=== PATIENT | male | born 1950 | race Caucasian/White ===

== ENCOUNTER 2016-04-10 11:09 | Inpatient (IN) | payer MEDICARE ==
[2016-04-10] MEDS ORDERED: SODIUM CHLORIDE 0.9% 10 ML FLUSH FLUSH PRN (11:29)
--- NOTE | 2016-04-10 11:34 | DIRPT ---
CLINICAL DATA: Confusion/altered mental status EXAM: CT HEAD WITHOUT CONTRAST TECHNIQUE: Contiguous axial images were obtained from the base of the skull through the vertex without intravenous contrast. COMPARISON: None. FINDINGS: There is mild diffuse atrophy. There is decreased attenuation in much of the left temporal lobe with extension to the left frontal-parietal lobe on the left. There is localized cytotoxic edema in these areas. There is no midline shift or acute intracranial hemorrhage. No subdural or epidural fluid collections. No other infarct apparent. The attenuation of the middle cerebral arteries is symmetric bilaterally. The bony calvarium appears intact. The mastoid air cells are clear. No intraorbital lesions are appreciable. IMPRESSION: Acute infarct involving much of the left temporal lobe with extension to the level of the left frontal -parietal junction. No midline shift or acute hemorrhage. No mass effect beyond cytotoxic edema in the area of the acute left-sided infarct. Critical Value/emergent results were called by telephone at the time of interpretation on 04/10/2016 at 11:31 am to FRANCISCA VALLE, who verbally acknowledged these results. Electronically Signed By: Kapil Johnson III, M.D. On: 04/10/2016 11:31
--- NOTE | 2016-04-10 11:35 | EDPRACDOC ---
<De La RosaMadhav - Last Filed: 04/10/16 12:36> - History of Present Illness Onset: UNKNOWN Exact Onset of Symptoms: Unknown HPI: PT PRESENTS TODAY WITH AMS. PT WAS FOUND BY SECURITY STAFF WONDERING THE PARKING LOT AND PT UNABLE TO ANSWER QUESTIONS. PT DOES NOT APPEAR TO BE IN DISTRESS, JUST CONFUSED. Symptoms Currently: Reports: Still Present Altered Quality: Reports: Confusion Altered Severity: Reports: Severe Blood Glucose Result: 169 <Josiane Schaeffer - Last Filed: 04/10/16 14:07> - General Information Stated Complaint: POSSIBLE STROKE Time Seen by Provider: 04/10/16 11:26 Home Medications: Home Medications Glimepiride 2 mg PO DAILY 02/27/15 Metformin HCl 500 mg PO DAILY 02/27/15 Docusate Sodium [Colace] 100 mg PO TID 03/01/15 Lisinopril [Zestril] 2.5 mg PO DAILY 04/10/16 Pravastatin Sodium 10 mg PO QHS 04/10/16 Allergies/Adverse Reactions: Allergies Allergy/AdvReac Type Severity Reaction Status Date / Time No Known Allergies Allergy Verified 03/03/15 19:36 ED Past Medical History - History Reviewed Yes Nurses notes reviewed and agree except as marked - Patient Medical History Respiratory History: Reports: Asthma (CHILDHOOD ASTHMA.. RESOLVED) GI/ History: Reports: Kidney Stones (06/2014) Systemic History: Reports: Diabetes Surgical History: Reports: Hernia Surgery (Lt groin 1971) - Family Medical History Reports: Diabetes (Mother,Brother). Denies: Hypertension, Cancer, Stroke, Cardiac Disorders - Social Medical History Smoking Status: Never smoker <Josiane Schaeffer - Last Filed: 04/10/16 14:07> EDM Review of Systems - Review of Systems ROS Negative Except as Marked: Yes All systems reviewed and were negative except as marked ROS Unobtainable: Yes Review of systems cannot be obtained due to the patient's medical condition <Josiane Schaeffer - Last Filed: 04/10/16 14:07> - Physical Exam Last recorded Vital Signs: Last Vital Signs Temp 97.9 F 04/10/16 11:40 Pulse 83 04/10/16 11:55 Resp 20 04/10/16 11:55 BP 148/89 04/10/16 11:55 Pulse Ox 97 04/10/16 11:55 Oxygen Pulse Oxygen Saturation 97 O2 Device Room Air Oxygen Flow Rate Fraction of Inspired Oxygen ( FIO2) <Madhav De La Rosa - Last Filed: 04/10/16 12:36> - Physical Exam Constitutional: No apparent distress, Alert Oriented to: Not Oriented Last recorded Vital Signs: Oxygen Pulse Oxygen Saturation O2 Device Oxygen Flow Rate Fraction of Inspired Oxygen ( FIO2) - HEENT Head: Normal Eye Exam: Normal Neck: Normal, Denies Pain, Midline - Respiratory/Cardiovascular Respiratory: Normal - CTA Cardiovascular: Normal - GI Palpation: Normal Tenderness: Non tender - Musculoskeletal Back: Normal Extremities: Normal - Integumentary Skin: Normal Lymphatics: Normal - Neurologic Motor Function: Unable to Test Cerebellar: Unable to Test Mood Description: Calm <Josiane Schaeffer - Last Filed: 04/10/16 14:07> - Results 04/10/16 11:34 04/10/16 11:34 WBC 12.5 xk/uL (3.8-10.8) H 04/10/16 11:34 RBC 5.33 xM/uL (4.70-6.10) 04/10/16 11:34 Hgb 15.9 g/dL (14.0-18.0) 04/10/16 11:34 Hct 47.8 % (42-52) 04/10/16 11:34 MCV 90 fL (80-94) 04/10/16 11:34 MCH 29.9 pg (27-32) 04/10/16 11:34 MCHC 33.3 g/dl (33-36) 04/10/16 11:34 RDW 14.4 % (11.5-14.5) 04/10/16 11:34 Plt Count 128 xk/uL (130-400) L 04/10/16 11:34 MPV 9.6 fL (7.4-10.4) 04/10/16 11:34 Neut % (Auto) 85.1 % (45-76) H 04/10/16 11:34 Lymph % (Auto) 5.0 % (17-44) L 04/10/16 11:34 Stanley % (Auto) 9.6 % (3-10) 04/10/16 11:34 Eos % (Auto) 0.0 % (0-5) 04/10/16 11:34 Baso % (Auto) 0.3 % (0-2) 04/10/16 11:34 Absolute Neuts (auto) 10.63 xk/uL (1.7-8.2) H 04/10/16 11:34 Absolute Lymphs (auto) 0.63 xk/uL (0.65-4.75) L 04/10/16 11:34 PT 12.1 SEC (9.2-11.2) H 04/10/16 11:34 INR 1.2 04/10/16 11:34 APTT 24.1 SEC (22-35) 04/10/16 11:34 Sodium 143 mEq/L (137-146) 04/10/16 11:34 Potassium 3.8 mEq/L (3.5-5.1) 04/10/16 11:34 Chloride 101 mEq/L (98-107) 04/10/16 11:34 Carbon Dioxide 27 mMOL/L (22-33) 04/10/16 11:34 Anion Gap 19 mEq/L (8-16) H 04/10/16 11:34 BUN 25 MG/DL (9-20) H 04/10/16 11:34 Creatinine 0.80 MG/DL (0.66-1.25) 04/10/16 11:34 Estimated GFR (MDRD) > 60 mL/min (>=60) 04/10/16 11:34 Glucose 176 MG/DL (70-99) H 04/10/16 11:34 POC Capillary Glucose 169 MG/DL (70-99) H 04/10/16 11:27 Calculated Osmolality 283 MOs/Kg (270-290) 04/10/16 11:34 Calcium 9.6 MG/DL (8.4-10.2) 04/10/16 11:34 Total Bilirubin 0.8 MG/DL (0.2-1.3) 04/10/16 11:34 AST 30 IU/L (17-59) 04/10/16 11:34 ALT 34 IU/L (21-72) 04/10/16 11:34 Alkaline Phosphatase 70 IU/L (50-160) 04/10/16 11:34 Troponin I < 0.01 ng/mL (<.04) 04/10/16 11:34 Total Protein 8.1 G/DL (6.3-8.2) 04/10/16 11:34 Albumin 5.1 G/DL (3.5-5.0) H 04/10/16 11:34 Lab Results 04/10/16 04/10/16 04/10/16 11:34 11:34 11:34 WBC 12.5 H RBC 5.33 Hgb 15.9 Hct 47.8 MCV 90 MCH 29.9 MCHC 33.3 RDW 14.4 Plt Count 128 L MPV 9.6 Neut % (Auto) 85.1 H Lymph % (Auto) 5.0 L Stanley % (Auto) 9.6 Eos % (Auto) 0.0 Baso % (Auto) 0.3 Absolute Neuts (auto) 10.63 H Absolute Lymphs (auto) 0.63 L PT 12.1 H INR 1.2 APTT 24.1 Sodium 143 Potassium 3.8 Chloride 101 Carbon Dioxide 27 Anion Gap 19 H BUN 25 H Creatinine 0.80 Estimated GFR (MDRD) > 60 Glucose 176 H POC Capillary Glucose Calculated Osmolality 283 Calcium 9.6 Total Bilirubin 0.8 AST 30 ALT 34 Alkaline Phosphatase 70 Troponin I < 0.01 Total Protein 8.1 Albumin 5.1 H 04/10/16 11:27 WBC RBC Hgb Hct MCV MCH MCHC RDW Plt Count MPV Neut % (Auto) Lymph % (Auto) Stanley % (Auto) Eos % (Auto) Baso % (Auto) Absolute Neuts (auto) Absolute Lymphs (auto) PT INR APTT Sodium Potassium Chloride Carbon Dioxide Anion Gap BUN Creatinine Estimated GFR (MDRD) Glucose POC Capillary Glucose 169 H Calculated Osmolality Calcium Total Bilirubin AST ALT Alkaline Phosphatase Troponin I Total Protein Albumin <Madhav De La Rosa - Last Filed: 04/10/16 12:36> - Results 04/10/16 11:34 04/10/16 11:34 POC Capillary Glucose 169 MG/DL (70-99) H 04/10/16 11:27 Lab Results 04/10/16 11:27 POC Capillary Glucose 169 H - EKG EKG #1 EKG Time: 11:40 -: Yes EKG interpreted by me Rate: bpm: 81 [place]: Normal Rhythm: NSR Block: RBBB (INCOMPLETE) Hypertrophy: None ST: Normal <Josiane Schaeffer - Last Filed: 04/10/16 14:07> - Departure Yes I personally saw and evaluated the patient. Disposition: Admit IP To This Hospital - Physician Consulted Hospitalist Time Called: 12:36 Provider Called: Teri Philippe Time Bean Dumper Returned Call: 12:36 <Madhav De La Rosa - Last Filed: 04/10/16 12:36> - Departure Disposition: Admit IP To This Hospital Decision to Admit Time: 11:36 Decision to admit date: 04/10/16 Decision to admit: from ED <Josiane Schaeffer - Last Filed: 04/10/16 14:07> - Departure Condition: Fair Final Diagnosis: CVA (cerebral vascular accident) Qualifiers: CVA mechanism: unspecified Qualified Code(s): I63.9 - Cerebral infarction, unspecified
[2016-04-10] MEDS ORDERED: ASPIRIN 300 MG SUPP PR ONE (11:44)
[2016-04-10 11:49] LABS: AUTOMATED BASOPHIL 0.3 % (0-2); AUTOMATED MONOCYTE 9.6 % (3-10); AUTOMATED NEUTROPHIL 85.1 % (45-76); MPV 9.6 fL (7.4-10.4)
[2016-04-10 11:58] LABS: BLOOD UREA NITROGEN 25 MG/DL (9-20); CALCIUM 9.6 MG/DL (8.4-10.2); CALCULATED OSMOLALITY 283 MOs/Kg (270-290); CHLORIDE 101 mEq/L (98-107); GLUCOSE 176 MG/DL (70-99); SODIUM LEVEL 143 mEq/L (137-146); TOTAL PROTEIN 8.1 G/DL (6.3-8.2)
[2016-04-10] MEDS ORDERED: Pharmacy Review for Metformin - IV Contrast Given SCH (12:00)
[2016-04-10 12:04] LABS: PARTIAL THROMB. TIME 24.1 SEC (22-35); PT-INR 1.2
--- NOTE | 2016-04-10 12:35 | DIRPT ---
CLINICAL DATA: Chest pain. Altered mental status EXAM: PORTABLE CHEST 1 VIEW COMPARISON: None. FINDINGS: There is low lung volumes with streaky basilar opacity and interstitial crowding. There is no edema, consolidation, effusion, or pneumothorax. Normal heart size. Negative aortic and hilar contours for technique. IMPRESSION: Low volumes with mild atelectasis. Electronically Signed By: Franklin Ordonez M.D. On: 04/10/2016 12:32
[2016-04-10] MEDS ORDERED: BENZONATATE 100 MG PERLES PO PRN (13:14)
[2016-04-10] MEDS ORDERED: Docusate Sodium 100 MG CAP PO PRN (13:14)
[2016-04-10] MEDS ORDERED: GUAIFENESIN 200 MG/10 ML UDC PO PRN (13:14)
[2016-04-10] MEDS ORDERED: ONDANSETRON HCL 4 MG/2 ML VIAL IV PRN (13:14)
[2016-04-10] MEDS ORDERED: ACETAMINOPHEN 325 MG/TAB TABLET PO PRN (13:14)
[2016-04-10] MEDS ORDERED: MAGNESIUM HYDROXIDE 30 ML BOTTLE PO PRN (13:14)
[2016-04-10] MEDS ORDERED: ACETAMINOPHEN 650 MG SUPP PR PRN (13:14)
[2016-04-10] MEDS ORDERED: ZOLPIDEM TARTRATE 5 MG TAB PO PRN (13:14)
[2016-04-10] MEDS ORDERED: GLUCOSE (ORAL GEL) 15 GM TUBE PO PRN (13:17)
[2016-04-10] MEDS ORDERED: DEXTROSE 25 GM/50 ML PFS IV PRN (13:17)
[2016-04-10] MEDS ORDERED: GLUCAGON 1 MG VIAL SQ PRN (13:17)
--- NOTE | 2016-04-10 13:19 | HISTPHYS ---
- Chief Complaint stroke, aphasia - History of Present Illness Mr. Lockhart is an unfortunate 65-year-old white male who lives alone and presented to the emergency room with severe expressive aphasia and an acute left parietotemporal stroke. His sister states she has not seen him for the last several days but this is not unusual as he is very independent. He apparently drove himself to the hospital and was found wandering outside confused and disoriented. He was brought back and evaluated and noted to have severe expressive aphasia. A CT scan of his head shows a large left temporoparietal stroke. He is somewhat restless and agitated at present but is moving all 4 extremities. He has abrasions on his right side and appears that he may have been injured or on the ground for prolonged period of time. He is unable to provide any history. - Medical History Cardiac History: Reports: No Significant History Respiratory History: Reports: Asthma (CHILDHOOD ASTHMA.. RESOLVED) GI/ History: Reports: Kidney Stones (06/2014) Musculoskeletal History: Reports: No Significant History Systemic History: Reports: Diabetes Neurological History: Reports: No Significant History Psychological History: Reports: No Significant History - Surgical History Reports: Hernia Surgery (Lt groin 1971) - Medictions/Allergies Allergies No Known Allergies Allergy (Verified 03/03/15 19:36) Current Medication List: Reviewed Home Medications Glimepiride 2 mg PO DAILY 02/27/15 Metformin HCl 500 mg PO BID 02/27/15 Docusate Sodium [Colace] 100 mg PO TID 03/01/15 Levofloxacin [Levaquin] 500 mg PO DAILY 03/01/15 Phenazopyridine [Pyridium] 200 mg PO TID #6 tab 03/03/15 - Family History Reports: Diabetes (Mother,Brother). Denies: Hypertension, Cancer, Stroke, Cardiac Disorders - Social History Travel Outside of [place] in the Last 3 Months?: Unable to Determine Lives: Alone Smoking Status: Never smoker Social History: Denies: Alcohol Use - Review of Systems Yes Review of systems cannot be obtained due to the patient's medical condition (Severe expressive aphasia and nonverbal status) - Physical Exam Constitutional: Alert, Distress, Restless, Well nourished. negative: Well appearing (Restless and agitated) Oriented to: Not Oriented Exam: Last Vital Signs Temp 97.9 F 04/10/16 11:40 Pulse 81 04/10/16 13:10 Resp 18 04/10/16 13:10 BP 158/98 04/10/16 13:10 Pulse Ox 97 04/10/16 13:10 Intake & Output 04/09/16 04/10/16 04/10/16 23:59 07:59 15:59 Patient's weight 113.171 kg - HEENT Head: Normal Eye: Normal Oropharynx: Normal - Respiratory/Cardiovascular Respiratory: Normal - CTA Cardiovascular: Normal - GI Auscultation: Normal Palpation: Normal Tenderness: Other (Possible left inguinal hernia very tender in his left groin but very restless keeps moving with attempts to examine) - Musculoskeletal Back: Normal Extremities: Normal - Integumentary Skin: Normal, Warm, Dry Lymphatics: Normal - Neurologic Memory Impaired: Unable to Test Motor Function: Other (Moving all 4 extremities but poor job following commands. ) Cranial Nerve: Other (Expressive aphasia and nonverbal currently) Cerebellar: Unable to Test Mood Description: Anxious, Agitated, Other (Very restless) Thought: negative: Coherent Perception: negative: Normal - Focused CV Perfusion Exam Vital Signs: Last Vital Signs Temp 97.9 F 04/10/16 11:40 Pulse 81 04/10/16 13:10 Resp 18 04/10/16 13:10 BP 158/98 04/10/16 13:10 Pulse Ox 97 04/10/16 13:10 - Lab Results Laboratory Results - last 24 hr 04/10/16 04/10/16 04/10/16 11:27 11:34 11:34 WBC 12.5 H RBC 5.33 Hgb 15.9 Hct 47.8 MCV 90 MCH 29.9 MCHC 33.3 RDW 14.4 Plt Count 128 L MPV 9.6 Neut % (Auto) 85.1 H Lymph % (Auto) 5.0 L Becker % (Auto) 9.6 Eos % (Auto) 0.0 Baso % (Auto) 0.3 Absolute Neuts (auto) 10.63 H Absolute Lymphs (auto) 0.63 L PT INR APTT Sodium 143 Potassium 3.8 Chloride 101 Carbon Dioxide 27 Anion Gap 19 H BUN 25 H Creatinine 0.80 Estimated GFR (MDRD) > 60 Glucose 176 H POC Capillary Glucose 169 H Calculated Osmolality 283 Calcium 9.6 Total Bilirubin 0.8 AST 30 ALT 34 Alkaline Phosphatase 70 Troponin I < 0.01 Total Protein 8.1 Albumin 5.1 H 04/10/16 11:34 WBC RBC Hgb Hct MCV MCH MCHC RDW Plt Count MPV Neut % (Auto) Lymph % (Auto) Becker % (Auto) Eos % (Auto) Baso % (Auto) Absolute Neuts (auto) Absolute Lymphs (auto) PT 12.1 H INR 1.2 APTT 24.1 Sodium Potassium Chloride Carbon Dioxide Anion Gap BUN Creatinine Estimated GFR (MDRD) Glucose POC Capillary Glucose Calculated Osmolality Calcium Total Bilirubin AST ALT Alkaline Phosphatase Troponin I Total Protein Albumin - Assessment (1) CVA (cerebral vascular accident) I63.9 - CEREBRAL INFARCTION, UNSPECIFIED Acute Present on Admission: Yes Qualifiers: CVA mechanism: thrombosis Precerebral and cerebral artery: middle cerebral artery Laterality of affected vessel: left Qualified Code(s): I63.312 - Cerebral infarction due to thrombosis of left middle cerebral artery Large left stroke in temporoparietal region. Has severe expressive aphasia but is moving his right side. Start aspirin and Lipitor. Carotid Dopplers and 2D echo. Speech therapy, physical therapy, and occupational therapy. Depending on progress he may need short-term rehab. This a large stroke and prognosis is guarded at this time. I did discuss this at length with patient's closest relative his sister. (2) Hypertension I10 - ESSENTIAL (PRIMARY) HYPERTENSION Acute Present on Admission: Yes Qualifiers: Hypertension type: essential hypertension Qualified Code(s): I10 - Essential (primary) hypertension Continue medications. Will allow permissive hypertension in the setting of acute stroke. Monitor closely (3) Diabetes mellitus E11.9 - TYPE 2 DIABETES MELLITUS WITHOUT COMPLICATIONS Acute Present on Admission: Yes Qualifiers: Diabetes mellitus type: type 2 Diabetes mellitus complication status: without complication Diabetes mellitus complication detail: D Diabetic retinopathy severity: D Proliferative retinopathy type: P Diabetes mellitus macular edema: D Diabetes mellitus nursing home insulin use: without nursing home use Laterality: L Chronic kidney disease stage: C Qualified Code(s): E11.9 - Type 2 diabetes mellitus without complications NPO due to acute stroke. Accu-Cheks and sliding scale insulin (4) Abdominal pain R10.9 - UNSPECIFIED ABDOMINAL PAIN Acute Present on Admission: Yes Qualifiers: Abdominal location: lower abdomen, unspecified Qualified Code(s): R10.30 - Lower abdominal pain, unspecified Appears very restless and agitated and grabbing at his left inguinal area. Have attempted repeatedly to examine and suspect has inguinal hernia but repeatedly pulls away. Does appear to be significant distress related to this. Will do CT of abdomen pelvis to rule out incarcerated hernia Case Care Discussed with: Patient, Family (Sister), Resource Management Total Time: 1 hour Critical Care: Yes
[2016-04-10 14:15] LABS: RBC/URINE TNTC (0-2)
[2016-04-10 14:36] LABS: LEUKOCYTES/URINE NEG (NEGATIVE); NITRITE/URINE NEG (NEGATIVE); URINE OCCULT BLOOD 2+ (NEG/TRACE)
[2016-04-10 14:39] LABS: AMORPHOUS 1+
[2016-04-10] MEDS: Aspirin (Orange Enteric Coated) 325 mg tab PO SCH (17:18)
[2016-04-10] MEDS: ATORVASTATIN 80 MG TAB PO SCH (17:18)
[2016-04-10] MEDS: REGULAR INSULIN 100 UNITS/ML - 3 ML VIAL SQ SCH ×2 (17:42→22:04)
[2016-04-10] MEDS: ENOXAPARIN 60 MG/0.6 ML PFS SQ SCH (17:48)
--- NOTE | 2016-04-10 21:18 | DIRPT ---
CLINICAL DATA: Confusion altered mental status EXAM: BILATERAL CAROTID DUPLEX ULTRASOUND TECHNIQUE: Michel scale imaging, color Doppler and duplex ultrasound were performed of bilateral carotid and vertebral arteries in the neck. COMPARISON: None. FINDINGS: Criteria: Quantification of carotid stenosis is based on velocity parameters that correlate the residual internal carotid diameter with NASCET-based stenosis levels, using the diameter of the distal internal carotid lumen as the denominator for stenosis measurement. The following velocity measurements were obtained: RIGHT ICA: 65/29 cm/sec CCA: 55/15 cm/sec SYSTOLIC ICA/CCA RATIO: 1.2 DIASTOLIC ICA/CCA RATIO: 2.0 ECA: 97 cm/sec LEFT ICA: 55/19 cm/sec CCA: 80/16 cm/sec SYSTOLIC ICA/CCA RATIO: 0.7 DIASTOLIC ICA/CCA RATIO: 1.2 ECA: 108 cm/sec RIGHT CAROTID ARTERY: Mild plaque in the bulb RIGHT VERTEBRAL ARTERY: Antegrade flow 0 LEFT CAROTID ARTERY: Mild intimal thickening in the bulb and common carotid artery LEFT VERTEBRAL ARTERY: Antegrade flow IMPRESSION: No evidence of hemodynamically significant stenosis Electronically Signed By: Tim Serrano M.D. On: 04/10/2016 21:15
--- NOTE | 2016-04-10 22:56 | DIRPT ---
CLINICAL DATA: 65-year-old male with new right upper extremity weakness, and right facial droop. EXAM: CT HEAD WITHOUT CONTRAST TECHNIQUE: Contiguous axial images were obtained from the base of the skull through the vertex without intravenous contrast. COMPARISON: CT dated 04/10/2016 FINDINGS: No acute intracranial hemorrhage. An area of hypodensity is again noted in the left temporal lobe extending into the left parietal lobe similar to prior study. There is loss of allen-white matter discrimination and effacement of the sulci. No significant mass effect or midline shift. The ventricles and sulci are appropriate in size for the patient's age. Mild periventricular and deep white matter hypodensity compatible with chronic microvascular ischemic changes. There is mild mucoperiosteal thickening of paranasal sinuses. The mastoid air cells are well aerated. The calvarium is intact. IMPRESSION: Grossly stable left MCA territory infarct. No acute hemorrhage. These results were called by telephone at the time of interpretation on 04/10/2016 at 10:50 pm to nurse Wolfe, who verbally acknowledged these results. Electronically Signed By: Jeffery Shields M.D. On: 04/10/2016 22:53
[2016-04-11] MEDS: REGULAR INSULIN 100 UNITS/ML - 3 ML VIAL SQ SCH ×4 (05:36→20:21)
[2016-04-11] MEDS: Aspirin (Orange Enteric Coated) 325 mg tab PO SCH (10:34)
--- NOTE | 2016-04-11 14:29 | GENMEDPROG ---
Chief Complaint: Still with severe expressive aphasia. Much calmer currently. Intermittently follows commands. Notes Reviewed: Yes Events from last night noted and discussed with Clinical Staff Current Medication List: Reviewed Currently: Denies: Cough, Wheezing, SIERRA, SOB, Nausea and Vomiting, Abdominal Pain, Chest Pain - Physical Examination Vital Signs and I&O: Last Vital Signs Temp 98.7 F 04/11/16 11:26 Pulse 84 04/11/16 14:00 Resp 20 04/11/16 11:26 BP 117/73 04/11/16 11:26 Pulse Ox 93 04/11/16 11:26 Oxygen Pulse Oxygen Saturation 93 O2 Device Room Air Oxygen Flow Rate 2 Fraction of Inspired Oxygen ( FIO2) Intake & Output 04/08/16 04/09/16 04/10/16 04/11/16 23:59 23:59 23:59 23:59 Intake Total 125 Output Total 1100 225 Balance -975 -225 Patient's weight 112.899 kg 99.478 kg General: Alert, Cooperative (Intermittently), No acute distress. negative: Oriented x3, Well appearing HEENT: Normal, PERRLA, EOMI, Anicteric Sclera Neck: Non-tender, Full range of motion, Normal Trachea alignment, Normal inspection. negative: JVD Lymphatics: Normal. negative: Adenopathy Respiratory: Normal - CTA Cardiovascular: Regular rate and rhythm, No Gallops,Rubs/Murmurs GI: Normal bowel sounds, Soft, Non tender, No hepatospenomegaly Extremities/Musculoskeletal: Normal pulses. negative: Tenderness, Swelling, Edema Skin: Warm,Dry and Intact, No rashes, No breakdown, No significant lesion Neurological: negative: Strength at 5/5 X4 ext (Right upper extremity 0/5. Right lower extremity 4/5) Psych/Mental Status: Cooperative (Intermittently), Restless (Though significantly improved from yesterday) Lab/DI/Studies Reviewed: Laboratory Results - last 24 hr 04/10/16 04/10/16 04/10/16 11:34 13:45 14:55 POC Capillary Glucose Troponin I < 0.01 Triglycerides Cholesterol LDL Cholesterol, Calc VLDL Cholesterol, Calc HDL Cholesterol Cholesterol/HDL Ratio TSH 2.40 Urine Color Yellow Urine Clarity Sl hzy Urine pH 5.0 Ur Specific [place] 1.025 Urine Protein Trace Urine Glucose (UA) Neg Urine Ketones 1+ H Urine Occult Blood 2+ H Urine Nitrite Neg Urine Bilirubin Neg Urine Urobilinogen 0.2 Ur Leukocyte Esterase Neg Urine RBC Tntc H Urine WBC 2-5 H Uric Acid Crystals 1+ Amorphous Sediment 1+ Urine Bacteria Few Urine Mucus Occ 04/10/16 04/10/16 04/10/16 17:36 17:42 21:44 POC Capillary Glucose 129 H 125 H Troponin I < 0.01 Triglycerides Cholesterol LDL Cholesterol, Calc VLDL Cholesterol, Calc HDL Cholesterol Cholesterol/HDL Ratio TSH Urine Color Urine Clarity Urine pH Ur Specific [place] Urine Protein Urine Glucose (UA) Urine Ketones Urine Occult Blood Urine Nitrite Urine Bilirubin Urine Urobilinogen Ur Leukocyte Esterase Urine RBC Urine WBC Uric Acid Crystals Amorphous Sediment Urine Bacteria Urine Mucus 04/11/16 04/11/16 04/11/16 03:10 04:46 11:18 POC Capillary Glucose 116 H 131 H Troponin I Triglycerides 130 Cholesterol 138 LDL Cholesterol, Calc 61.0 VLDL Cholesterol, Calc 26.0 HDL Cholesterol 51.0 Cholesterol/HDL Ratio 2.7 TSH Urine Color Urine Clarity Urine pH Ur Specific [place] Urine Protein Urine Glucose (UA) Urine Ketones Urine Occult Blood Urine Nitrite Urine Bilirubin Urine Urobilinogen Ur Leukocyte Esterase Urine RBC Urine WBC Uric Acid Crystals Amorphous Sediment Urine Bacteria Urine Mucus - Assessment (1) CVA (cerebral vascular accident) Acute I63.9 - CEREBRAL INFARCTION, UNSPECIFIED Qualifiers: CVA mechanism: thrombosis Precerebral and cerebral artery: middle cerebral artery Laterality of affected vessel: left Qualified Code(s): I63.312 - Cerebral infarction due to thrombosis of left middle cerebral artery Comment/Plan: Large left stroke in temporoparietal region. Severe expressive aphasia and appears paralyzed in his right upper extremity. He is moving his right lower extremity some. He has significant dysphagia so will be made NPO and an NG tube placed. May require PEG. Carotid Dopplers and 2D echo are pending. Continue speech therapy physical therapy and occupational therapy. Discussed with brother at length. He will need [facility] facility placement at discharge. (2) Hypertension Acute I10 - ESSENTIAL (PRIMARY) HYPERTENSION Qualifiers: Hypertension type: essential hypertension Qualified Code(s): I10 - Essential (primary) hypertension Comment/Plan: Titrate medications as needed. 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 Accu-Cheks and sliding scale insulin (4) Abdominal pain Acute R10.9 - UNSPECIFIED ABDOMINAL PAIN Qualifiers: Abdominal location: lower abdomen, unspecified Qualified Code(s): R10.30 - Lower abdominal pain, unspecified Comment/Plan: Appears very restless and agitated and grabbing at his left inguinal area. Have attempted repeatedly to examine and suspect has inguinal hernia but repeatedly pulls away. Does appear to be significant distress related to this. 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
[2016-04-11] MEDS ORDERED: DIATRIZOATE MEGLMINE/SODIUM 30 ML BOTTLE PO ONE (14:30)
[2016-04-11] MEDS: ATORVASTATIN 80 MG TAB PO SCH (15:51)
[2016-04-11] MEDS: ENOXAPARIN 60 MG/0.6 ML PFS SQ SCH (17:47)
--- NOTE | 2016-04-11 18:51 | DIRPT ---
CLINICAL DATA: Possible incarcerated hernia, left groin pain EXAM: CT ABDOMEN AND PELVIS WITHOUT CONTRAST TECHNIQUE: Multidetector CT imaging of the abdomen and pelvis was performed following the standard protocol without IV contrast. COMPARISON: CT scan 06/13/2014 FINDINGS: Lung bases are unremarkable. There is NG tube in place with tip in mid stomach. Hypodense lesions within liver probable cysts are stable in size in appearance from prior exam. No calcified gallstones are noted within gallbladder. Sagittal images of the spine shows diffuse osteopenia. Stable partial bony fusion and mild anterolisthesis L5-S1 level. Atherosclerotic calcifications of abdominal aorta and iliac arteries. No aortic aneurysm. Unenhanced liver shows no biliary ductal dilatation. Unenhanced pancreas, spleen and adrenal glands are unremarkable. Unenhanced kidneys are symmetrical in size. No nephrolithiasis. There is a cyst in upper pole lateral aspect of the left kidney measures 3.4 cm. On the prior exam this measures 2.9 cm. No calcified ureteral calculi. Oral contrast material was given to the patient. There is no small bowel obstruction. The terminal ileum is unremarkable. No pericecal inflammation. The appendix is not identified. Some colonic gas and stool noted in descending colon. No evidence of colitis or diverticulitis. Moderate gas and stool noted within rectum. There is a decompressed urinary bladder. There is a low lying Segura catheter with a balloon in the region of prostatic urethra. There is a right inguinal hernia containing fat measures about 1.1 cm. No evidence of acute complication. Again noted a left inguinal scrotal canal hernia containing fat measures 3.7 by 2.2 cm stable in size from prior exam. There is mild stranding of the fat within left inguinal cell hernia. Mild inflammatory changes or fat edema cannot be excluded. No evidence of confluent fluid collection. Minimal thickening of the wall of the hernial sac. Tiny amount of air within urinary bladder is probable post instrumentation. IMPRESSION: 1. Again noted a left inguinal scrotal canal hernia containing fat. Measures 3.7 x 2.2 cm stable from prior exam. There is mild stranding of the fat within hernia and mild thickening of the wall of hernia sac. Findings are suspicious for mild inflammatory changes. There is no evidence of confluent fluid collection or abscess. 2. Stable scattered low-density lesion within liver probable benign in nature. 3. There is a NG tube in place with tip in mid stomach. 4. No nephrolithiasis. No hydronephrosis or hydroureter. A cyst in upper pole of the left kidney measures 3.4 cm with slight progression in size from prior exam. 5. No small bowel obstruction. No pericecal inflammation. The appendix is not identified. 6. Stable degenerative changes lumbar spine at L5-S1 level. 7. Small amount of air is noted within decompressed urinary bladder. Small amount of air within bladder is probable post instrumentation. There is a low lying Segura catheter with the baloon in the region of prostatic urethra. Electronically Signed By: Domenico Bee M.D. On: 04/11/2016 18:48
[2016-04-12 04:17] LABS: AUTOMATED BASOPHIL 0.3 % (0-2); AUTOMATED EOSINOPHIL 0.1 % (0-5); AUTOMATED LYMPH 9.8 % (17-44); AUTOMATED MONOCYTE 12.4 % (3-10); AUTOMATED NEUTROPHIL 77.4 % (45-76); MPV 9.9 fL (7.4-10.4)
[2016-04-12 04:25] LABS: BLOOD UREA NITROGEN 21 MG/DL (9-20); CALCIUM 9.4 MG/DL (8.4-10.2); CALCULATED OSMOLALITY 282 MOs/Kg (270-290); CHLORIDE 102 mEq/L (98-107); GLUCOSE 130 MG/DL (70-99); SODIUM LEVEL 144 mEq/L (137-146)
[2016-04-12] MEDS: REGULAR INSULIN 100 UNITS/ML - 3 ML VIAL SQ SCH ×4 (04:59→21:50)
[2016-04-12] MEDS: Aspirin (Orange Enteric Coated) 325 mg tab PO SCH (07:41)
[2016-04-12] MEDS: ATORVASTATIN 80 MG TAB PO SCH (07:41)
--- NOTE | 2016-04-12 10:19 | GENMEDPROG ---
Currently: Denies: Cough, Wheezing, SIERRA, SOB, Nausea and Vomiting, Abdominal Pain, Chest Pain - Physical Examination Vital Signs and I&O: Last Vital Signs Temp 98.3 F 04/12/16 08:13 Pulse 70 04/12/16 08:13 Resp 18 04/12/16 08:13 BP 130/76 04/12/16 08:13 Pulse Ox 92 04/12/16 08:13 Oxygen Pulse Oxygen Saturation 92 O2 Device Nasal Cannula Oxygen Flow Rate 1 Fraction of Inspired Oxygen ( FIO2) Intake & Output 04/09/16 04/10/16 04/11/16 04/12/16 23:59 23:59 23:59 23:59 Intake Total 125 Output Total 1100 1325 400 Balance -975 -1325 -400 Patient's weight 112.899 kg 99.478 kg 97.25 kg General: Alert, Cooperative (Intermittently), No acute distress. negative: Oriented x3, Well appearing HEENT: Normal, PERRLA, EOMI, Anicteric Sclera Neck: Non-tender, Full range of motion, Normal Trachea alignment, Normal inspection. negative: JVD Lymphatics: Normal. negative: Adenopathy Respiratory: Normal - CTA Cardiovascular: Regular rate and rhythm, No Gallops,Rubs/Murmurs GI: Normal bowel sounds, Soft, Non tender, No hepatospenomegaly Extremities/Musculoskeletal: Normal pulses. negative: Tenderness, Swelling, Edema Skin: Warm,Dry and Intact, No rashes, No breakdown, No significant lesion Neurological: Normal speech (aphasic), Normal tone (on left), Lethargy. negative: Strength at 5/5 X4 ext (Right upper extremity 0/5. Right lower extremity 1/5), Reflexes 2+ (Babinski present on Right) Psych/Mental Status: Cooperative (Intermittently), Restless (Though significantly improved from yesterday) Lab/DI/Studies Reviewed: Laboratory Tests 04/12/16 04/12/16 04:00 04:19 WBC 12.5 H Hgb 15.8 Hct 47.8 Plt Count 123 L Neut % (Auto) 77.4 H Lymph % (Auto) 9.8 L Brown % (Auto) 12.4 H Sodium 144 Potassium 3.7 Chloride 102 Carbon Dioxide 27 Anion Gap 19 H BUN 21 H Creatinine 0.80 Estimated GFR (MDRD) > 60 Glucose 130 H Calculated Osmolality 282 Calcium 9.4 - Assessment (1) CVA (cerebral vascular accident) Acute I63.9 - CEREBRAL INFARCTION, UNSPECIFIED Qualifiers: CVA mechanism: thrombosis Precerebral and cerebral artery: middle cerebral artery Laterality of affected vessel: left Qualified Code(s): I63.312 - Cerebral infarction due to thrombosis of left middle cerebral artery Comment/Plan: Large left stroke in temporoparietal region. Severe expressive aphasia and appears paralyzed in his right upper & lower extremities. He is not moving anything on the right voluntarily, but does move the left side. He has significant dysphagia so will be made NPO and an NG tube placed. May require PEG. Carotid Dopplers and 2D echo are pending. Continue speech therapy physical therapy and occupational therapy. He will need intermediate facility placement at discharge. (2) Flaccid paralysis affecting one side of the body Acute G81.00 - FLACCID HEMIPLEGIA AFFECTING UNSPECIFIED SIDE Comment/Plan: Appears to have extended his stroke, as he now has complete paralysis on the entire right side. Also has difficulty following commands, so probably has receptive and expressive aphasia. (3) Diabetes mellitus Acute E11.9 - TYPE 2 DIABETES MELLITUS WITHOUT COMPLICATIONS Qualifiers: Diabetes mellitus type: type 2 Diabetes mellitus complication status: with neurologic complications Diabetes mellitus complication detail: with other neurological complication Diabetic retinopathy severity: D Proliferative retinopathy type: P Diabetes mellitus macular edema: D Diabetes mellitus skilled nursing insulin use: without skilled nursing use Laterality: L Chronic kidney disease stage: C Qualified Code(s): E11.49 - Type 2 diabetes mellitus with other diabetic neurological complication Comment/Plan: NPO due to acute stroke. Accu-Cheks and sliding scale insulin (4) Hypertension Acute I10 - ESSENTIAL (PRIMARY) HYPERTENSION Qualifiers: Hypertension type: essential hypertension Qualified Code(s): I10 - Essential (primary) hypertension Comment/Plan: Titrate medications as needed. Case Care Discussed with: Nursing Staff, Resource Management Education/Counseling Given Regarding: Diagnosis, Treatment, Prognosis Total Time: 35 min
[2016-04-12] MEDS: NS/KCl 20 mEq 1,000 ML IV SCH (15:32)
[2016-04-12] MEDS: Levofloxacin 750 mg/150 ml D5W 750 MG/150 ML RTU IV SCH (23:10)
[2016-04-13] MEDS: NS/KCl 20 mEq 1,000 ML IV SCH ×4 (01:45→21:45)
[2016-04-13] MEDS: REGULAR INSULIN 100 UNITS/ML - 3 ML VIAL SQ SCH ×4 (04:56→19:59)
[2016-04-13] MEDS ORDERED: ASPIRIN 325 MG TAB PO SCH (08:00)
--- NOTE | 2016-04-13 09:22 | DIRPT ---
CLINICAL DATA: Follow-up of pneumonia EXAM: CHEST 2 VIEW COMPARISON: Portable chest x-ray of April 10, 2016 and uppermost images from a CT scan of the abdomen and pelvis dated April 11, 2016 FINDINGS: There is persistent elevation of the right hemidiaphragm. The lungs are adequately inflated. There is no focal infiltrate. There is a tiny amount of blunting of the posterior costophrenic angle on the left which is seen on the CT scan to be related to prominent subpleural fat. The cardiac silhouette is normal in size. The pulmonary vascularity is not engorged. The esophagogastric tube tip projects below the inferior margin of the image. IMPRESSION: Stable elevation of the right hemidiaphragm. No acute cardiopulmonary abnormality. Electronically Signed By: Chris Kebede M.D. On: 04/13/2016 09:19
--- NOTE | 2016-04-13 10:59 | GENMEDPROG ---
Chief Complaint: CVA w/ R sided paralysis, expressive and receptive aphasia (global), dysphagia , DM-2, HTN/HCVD Currently: Denies: Cough, Wheezing, SIERRA, SOB, Nausea and Vomiting, Abdominal Pain, Chest Pain - Physical Examination Vital Signs and I&O: Last Vital Signs Temp 98.2 F 04/13/16 08:00 Pulse 72 04/13/16 09:55 Resp 20 04/13/16 08:00 BP 117/69 04/13/16 08:00 Pulse Ox 94 04/13/16 09:37 Oxygen Pulse Oxygen Saturation 94 O2 Device Room Air Oxygen Flow Rate 2 Fraction of Inspired Oxygen ( FIO2) Intake & Output 04/10/16 04/11/16 04/12/16 04/13/16 23:59 23:59 23:59 23:59 Intake Total 878 572 5739 Output Total 1100 1325 1100 200 Balance -975 -1325 -864 1072 Patient's weight 112.899 kg 99.478 kg 97.25 kg 97.522 kg General: Alert, Cooperative (Intermittently), No acute distress. negative: Oriented x3, Well appearing HEENT: Normal, PERRLA, EOMI, Anicteric Sclera Neck: Non-tender, Full range of motion, Normal Trachea alignment, Normal inspection. negative: JVD Lymphatics: Normal. negative: Adenopathy Respiratory: Normal - CTA Cardiovascular: Regular rate and rhythm, No Gallops,Rubs/Murmurs GI: Normal bowel sounds, Soft, Non tender, No hepatospenomegaly Extremities/Musculoskeletal: Normal pulses. negative: Tenderness, Swelling, Edema Skin: Warm,Dry and Intact, No rashes, No breakdown, No significant lesion Neurological: Normal tone (on left), Lethargy. negative: Normal speech ( patient has no speech - aphasic and has receptive aphasia also), Strength at 5/ 5 X4 ext (Right upper extremity 0/5. Right lower extremity 1/5), Reflexes 2+ ( Babinski present on Right) Psych/Mental Status: Normal Affect (alert, makes eye contact, reads newspaper, but will not follow commands with normal side), Cooperative (Intermittently) - Assessment (1) CVA (cerebral vascular accident) Acute I63.9 - CEREBRAL INFARCTION, UNSPECIFIED Qualifiers: CVA mechanism: thrombosis Precerebral and cerebral artery: middle cerebral artery Laterality of affected vessel: left Qualified Code(s): I63.312 - Cerebral infarction due to thrombosis of left middle cerebral artery Comment/Plan: Large left stroke in temporoparietal region. Severe expressive aphasia and appears paralyzed in his right upper & lower extremities. He is not moving anything on the right voluntarily, but does move the left side. He has significant dysphagia so will be made NPO and an NG tube placed. May require PEG. Carotid Dopplers and 2D echo are pending. Continue speech therapy physical therapy and occupational therapy. He will need [facility] at discharge. (2) Flaccid paralysis affecting one side of the body Acute G81.00 - FLACCID HEMIPLEGIA AFFECTING UNSPECIFIED SIDE Comment/Plan: Appears to have extended his stroke, as he now has complete paralysis on the entire right side. Also has difficulty following commands, so probably has receptive and expressive aphasia. (3) Diabetes mellitus Acute E11.9 - TYPE 2 DIABETES MELLITUS WITHOUT COMPLICATIONS Qualifiers: Diabetes mellitus type: type 2 Diabetes mellitus complication status: with neurologic complications Diabetes mellitus complication detail: with other neurological complication Diabetic retinopathy severity: D Proliferative retinopathy type: P Diabetes mellitus macular edema: D Diabetes mellitus terminal worker insulin use: without nursing home use Laterality: L Chronic kidney disease stage: C Qualified Code(s): E11.49 - Type 2 diabetes mellitus with other diabetic neurological complication Comment/Plan: NPO due to acute stroke. Accu-Cheks and sliding scale insulin (4) Hypertension Acute I10 - ESSENTIAL (PRIMARY) HYPERTENSION Qualifiers: Hypertension type: essential hypertension Qualified Code(s): I10 - Essential (primary) hypertension Comment/Plan: Titrate medications as needed.
[2016-04-13] MEDS ORDERED: Vaccine Screening Complete SCH (11:00)
[2016-04-13] MEDS: ASPIRIN 300 MG SUPP PR SCH (15:33)
[2016-04-13] MEDS: ATORVASTATIN 80 MG TAB PO SCH (17:06)
[2016-04-13] MEDS ORDERED: ENOXAPARIN 60 MG/0.6 ML PFS SQ SCH (18:00)
[2016-04-13] MEDS: Levofloxacin 750 mg/150 ml D5W 750 MG/150 ML RTU IV SCH (21:46)
[2016-04-14] MEDS: REGULAR INSULIN 100 UNITS/ML - 3 ML VIAL SQ SCH ×4 (05:25→21:40)
[2016-04-14] MEDS: NS/KCl 20 mEq 1,000 ML IV SCH ×4 (05:26→21:39)
[2016-04-14] MEDS: ASPIRIN 300 MG SUPP PR SCH (10:00)
[2016-04-14 11:02] VITALS: TEMP 98.4
--- NOTE | 2016-04-14 15:43 | PCM.CONSGI ---
Consult Date: 04/14/16 Consult Requesting Physician: Myra Linares Consult Reason: Other (Gastrostomy tube placement) - History of Present Illness Mr. Byrd is an unfortunate 65-year-old male who presented with a acute parietotemporal is CVA. He is aphasic with right-sided paralysis. He is NPO and has been evaluated by speech therapy. A GI consult was obtained for gastrostomy tube. Mr Byrd lives alone. By history he presented to the Emergency Room aphasic. It appears his CVA progress and now he has dense paralysis of the right side. Per his records he has no significant GI history. He is not taking any chronic prescribed acid suppression medication. It is unknown if he has ever had any GI procedures. He does have NG tube in place. He is unable to take any oral nutrition or medication. He has been evaluated by Neurology also. A GI consult was obtained. I contacted his sister by telephone to discuss the procedure. They had talked to Dr. Linares and were agreeable to proceed with this. They had no questions - Past Medical History Cardiac History: Reports: No Significant History Respiratory History: Reports: Asthma (CHILDHOOD ASTHMA.. RESOLVED) GI/ History: Reports: Prostate Problems (BPH), Kidney Stones (06/2014) Musculoskeletal History: Reports: No Significant History Systemic History: Reports: Diabetes Neurological History: Reports: Cerebrovascular Accident Psychological History: Denies: Alcoholism, Substance Use Disorder - Surgical History Past Surgical History: Reports: Hernia Surgery (Lt groin 1971) - Procedure History Procedure History: Denies: Colonoscopy - Family History Family History: Reports: Diabetes (Mother,Brother). Denies: Cardiac Disorders, Cancer, Hypertension, Seizures, Stroke - Allergies Allergies No Known Allergies Allergy (Verified 03/03/15 19:36) - Medications Home Medications Glimepiride 2 mg PO DAILY 02/27/15 Metformin HCl 500 mg PO DAILY 02/27/15 Docusate Sodium [Colace] 100 mg PO TID 03/01/15 Lisinopril [Zestril] 2.5 mg PO DAILY 04/10/16 Pravastatin Sodium 10 mg PO QHS 04/10/16 - Social History Lives: Alone Smoking Status: Never smoker Social History: Denies: Alcohol Use, Substance Use Disorder - Review of Systems ROS Unobtainable: Yes Review of systems cannot be obtained due to the patient's medical condition - Exam Vital Signs: Temperature: 98.6 F (04/14/16 11:20) HR: 70 (04/14/16 11:42) RR: 17 (04/14/16 11:20) BP: 131/79 (04/14/16 11:20) Pulse Ox: 94 (04/14/16 11:20) General: Alert, Cooperative, Other ( aphasic) HEENT: negative: Icteric Sclera Respiratory: Normal - CTA. negative: Accessory Muscle Use Cardiovascular: Regular rate Gastrointestinal: Bowel Sounds. negative: Soft, Distended, Tender Extremities: negative: Edema Skin: Warm,Dry and Intact Neurological: Other (Dense paralysis right side able to move the left upper extremity without difficulty. Shakes his head yes to every question asked.) - Labs Result Diagrams: 04/12/16 04:19 04/12/16 04:00 Exam(s): CT/CT ABD-PELV W/O IV CM CLINICAL DATA: Possible incarcerated hernia, left groin pain IMPRESSION: 1. Again noted a left inguinal scrotal canal hernia containing fat. Measures 3.7 x 2.2 cm stable from prior exam. There is mild stranding of the fat within hernia and mild thickening of the wall of hernia sac. Findings are suspicious for mild inflammatory changes. There is no evidence of confluent fluid collection or abscess. 2. Stable scattered low-density lesion within liver probable benign in nature. 3. There is a NG tube in place with tip in mid stomach. 4. No nephrolithiasis. No hydronephrosis or hydroureter. A cyst in upper pole of the left kidney measures 3.4 cm with slight progression in size from prior exam. 5. No small bowel obstruction. No pericecal inflammation. The appendix is not identified. 6. Stable degenerative changes lumbar spine at L5-S1 level. 7. Small amount of air is noted within decompressed urinary bladder. Small amount of air within bladder is probable post instrumentation. There is a low lying Segura catheter with the baloon in the region of prostatic urethra. Exam(s): 04-10-16 CT/CT HEAD W/O (CODESTROKE) CLINICAL DATA: 65-year-old male with new right upper extremity weakness, and right facial droop. IMPRESSION: Grossly stable left MCA territory infarct. No acute hemorrhage. - Assessment and Plan (1) At high risk for aspiration Acute Z91.89 - OTH PERSONAL RISK FACTORS, NOT ELSEWHERE CLASSIFIED (2) CVA (cerebral vascular accident) Acute I63.9 - CEREBRAL INFARCTION, UNSPECIFIED thrombosis middle cerebral artery left I63.312 - Cerebral infarction due to thrombosis of left middle cerebral artery (3) Diabetes mellitus Acute E11.9 - TYPE 2 DIABETES MELLITUS WITHOUT COMPLICATIONS type 2 with neurologic complications with other neurological complication D P D without skilled nursing use L C E11.49 - Type 2 diabetes mellitus with other diabetic neurological complication (4) Hypertension Acute I10 - ESSENTIAL (PRIMARY) HYPERTENSION essential hypertension I10 - Essential (primary) hypertension Recommendations: 1. Continue care of his medical problems 2. New NPO 3. Arrange for gastrostomy tube placement 04-15-16
--- NOTE | 2016-04-14 15:44 | GENMEDPROG ---
Currently: Denies: Cough, Wheezing, SIERRA, SOB, Nausea and Vomiting, Abdominal Pain, Chest Pain - Physical Examination Vital Signs and I&O: Last Vital Signs Temp 98.6 F 04/14/16 11:20 Pulse 70 04/14/16 11:42 Resp 17 04/14/16 11:20 BP 131/79 04/14/16 11:20 Pulse Ox 94 04/14/16 11:20 Oxygen Pulse Oxygen Saturation 94 O2 Device Room Air Oxygen Flow Rate 2 Fraction of Inspired Oxygen ( FIO2) Intake & Output 04/11/16 04/12/16 04/13/16 04/14/16 23:59 23:59 23:59 23:59 Intake Total 236 2266 1486 Output Total 1325 1100 1150 350 Balance -1325 -864 1116 1136 Patient's weight 99.478 kg 97.25 kg 97.522 kg 96.887 kg General: Alert, Cooperative (Intermittently), No acute distress. negative: Oriented x3, Well appearing HEENT: Normal, PERRLA, EOMI, Anicteric Sclera Neck: Non-tender, Full range of motion, Normal Trachea alignment, Normal inspection. negative: JVD Lymphatics: Normal. negative: Adenopathy Respiratory: Normal - CTA Cardiovascular: Regular rate and rhythm, No Gallops,Rubs/Murmurs GI: Normal bowel sounds, Soft, Non tender, No hepatospenomegaly Extremities/Musculoskeletal: Normal pulses. negative: Tenderness, Swelling, Edema Skin: Warm,Dry and Intact, No rashes, No breakdown, No significant lesion Neurological: Normal tone (on left), Lethargy. negative: Normal speech ( patient has no speech - aphasic and has receptive aphasia also), Strength at 5/ 5 X4 ext (Right upper extremity 0/5. Right lower extremity 1/5), Reflexes 2+ ( Babinski present on Right) Psych/Mental Status: Normal Affect (alert, makes eye contact, reads newspaper, but will not follow commands with normal side), Cooperative (Intermittently) - Assessment (1) CVA (cerebral vascular accident) Acute I63.9 - CEREBRAL INFARCTION, UNSPECIFIED Qualifiers: Qualified Code(s): I63.312 - Cerebral infarction due to thrombosis of left middle cerebral artery Comment/Plan: Large left stroke in temporoparietal region. Severe expressive aphasia and appears paralyzed in his right upper & lower extremities. He is not moving anything on the right voluntarily, but does move the left side. He has significant dysphagia so will be made NPO and an NG tube placed. May require PEG. Carotid Dopplers and 2D echo are pending. Continue speech therapy physical therapy and occupational therapy. He will need alf facility placement at discharge. (2) Flaccid paralysis affecting one side of the body Acute G81.00 - FLACCID HEMIPLEGIA AFFECTING UNSPECIFIED SIDE Comment/Plan: Appears to have extended his stroke, as he now has complete paralysis on the entire right side. Also has difficulty following commands, so probably has receptive and expressive aphasia. (3) Diabetes mellitus Acute E11.9 - TYPE 2 DIABETES MELLITUS WITHOUT COMPLICATIONS Qualifiers: Qualified Code(s): E11.49 - Type 2 diabetes mellitus with other diabetic neurological complication Comment/Plan: NPO due to acute stroke. Accu-Cheks and sliding scale insulin (4) Hypertension Acute I10 - ESSENTIAL (PRIMARY) HYPERTENSION Qualifiers: Qualified Code(s): I10 - Essential (primary) hypertension Comment/Plan: Titrate medications as needed.
[2016-04-14] MEDS: ATORVASTATIN 80 MG TAB PO SCH (16:48)
[2016-04-14] MEDS: Levofloxacin 750 mg/150 ml D5W 750 MG/150 ML RTU IV SCH (21:40)
[2016-04-15 04:12] VITALS: BMI 29.1
[2016-04-15 05:00] LABS: PT-INR 1.4
[2016-04-15 05:17] LABS: BLOOD UREA NITROGEN 22 MG/DL (9-20); CALCIUM 9.2 MG/DL (8.4-10.2); CALCULATED OSMOLALITY 277 MOs/Kg (270-290); CHLORIDE 108 mEq/L (98-107); GLUCOSE 114 MG/DL (70-99); SODIUM LEVEL 142 mEq/L (137-146)
[2016-04-15] MEDS: REGULAR INSULIN 100 UNITS/ML - 3 ML VIAL SQ SCH ×4 (06:07→20:46)
[2016-04-15] MEDS ORDERED: MEPERIDINE 25 MG/ML TUBEX ONE (06:20)
[2016-04-15] MEDS ORDERED: DIPHENHYDRAMINE 50 MG/ML VIAL ONE (06:20)
[2016-04-15] MEDS ORDERED: MIDAZOLAM 5 MG/5 ML VIAL ONE (06:20)
[2016-04-15] MEDS ORDERED: NS 1,000 ML IV ONE (06:20)
[2016-04-15] MEDS ORDERED: CEFAZOLIN 1 GM in D5W 100 ML IV ONE (06:30)
[2016-04-15] MEDS ORDERED: Cefazolin 1gm/50 ml D5W 1 GM/50 ML RTU IV SCH (06:30)
--- NOTE | 2016-04-15 07:50 | HIMOPRPT ---
DATE OF PROCEDURE: 04/15/16 PROCEDURE: Esophagogastroduodenoscopy with gastrostomy tube placement. INDICATIONS: Recent CVA patient unable to maintain p.o. nutrition high risk for aspiration. INSTRUMENTS: Olympus video upper endoscope. MEDICATIONS: Versed 10 mg IV and Demerol 50 mg IV. PHYSICAL EXAMINATION: GENERAL: The patient was in no distress. VITAL SIGNS: Stable. CHEST: Clear CARDIAC: Regular rate and rhythm. ABDOMEN: [Nondistended, nontender]. NEUROLOGIC: Aphasic right-sided paralysis DESCRIPTION OF PROCEDURE: Mr. Byrd was placed in a supine position and IV sedation was given in small incremental doses for the patient's comfort for moderate sedation. The endoscope was advanced without difficulty into the duodenum. ESOPHAGUS: Esophagus had gastroesophageal junction located at 40 cm. The GE junction was well distended. The distal esophagus was not inflamed]. STOMACH: [Stomach had mild erythema in the antrum. A hiatal hernia was present DUODENUM: The duodenum was normal. The location for the gastrostomy tube was determined by palpation and direct visualization. The area was cleaned and prepped with Betadine and draped. The area was infuse with lidocaine. A small skin incision was made with a 11. Scalpel. A small needle was advanced through the skin incision into the gastric lumen under direct vision and more lidocaine applied. A large bore needle was then placed through the incision into the gastric lumen. A guidewire was placed through the large-bore needle and retrieved endoscopically. With this guidewire retrieved the gastrostomy tube was attached and pulled into place. The position was confirmed endoscopically. The patient tolerated the procedure well. IMPRESSION: 1. Successful placement of gastrostomy tube 2. Mild gastritis 3. Small hiatal hernia RECOMMENDATIONS: 1. Continue care of his medical problems 2. Routine gastrostomy care
[2016-04-15] MEDS: NS/KCl 20 mEq 1,000 ML IV SCH ×6 (09:06→22:37)
[2016-04-15] MEDS: ASPIRIN 300 MG SUPP PR SCH (09:41)
[2016-04-15] MEDS: ATORVASTATIN 80 MG TAB PO SCH (17:33)
[2016-04-15] MEDS ORDERED: GLUCERNA VANILLA PEG SCH (18:00)
--- NOTE | 2016-04-15 18:53 | PCM.GIPROG ---
Progress Note (GI) Chief Complaint: Mr. Byrd with gastrostomy tube placed today. He is in no distress. He continues to be aphasic with right-sided paralysis.. His vital signs are stable. He is afebrile. - Physical Exam Vital Signs: Temperature: 98.6 F (04/15/16 15:55) HR: 74 (04/15/16 18:00) RR: 16 (04/15/16 15:55) BP: 112/73 (04/15/16 15:55) Pulse Ox: 93 (04/15/16 15:55) General: Alert, Mild distress HEENT: negative: Icteric Sclera Respiratory: negative: Accessory Muscle Use Gastrointestinal: Soft, Bowel Sounds, Tender (Mild around the gastrostomy site. This graft ostomy site is unremarkable and dry). 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 Severe expressive aphasia and appears paralyzed in his right upper & lower extremities. He is not moving anything on the right voluntarily, but does move the left side. He has significant dysphagia so will be made NPO and an NG tube placed. May require PEG. Carotid Dopplers and 2D echo are pending. Continue speech therapy physical therapy and occupational therapy. He will need shelter facility placement at discharge. (3) Diabetes mellitus Acute E11.9 - TYPE 2 DIABETES MELLITUS WITHOUT COMPLICATIONS Present on Admission: Yes type 2 with neurologic complications with other neurological complication D P D without penitentiary use L C E11.49 - Type 2 diabetes mellitus with other diabetic neurological complication Comment: NPO due to acute stroke. Accu-Cheks and sliding scale insulin (4) Hypertension Acute I10 - ESSENTIAL (PRIMARY) HYPERTENSION Present on Admission: Yes essential hypertension I10 - Essential (primary) hypertension Comment: Titrate medications as needed. Plan: 1. Routine gastrostomy care 2. Began bolus feedings this p.m. 3. Continue care of his other medical problems
--- NOTE | 2016-04-15 19:28 | GENMEDPROG ---
[id number] Vital Signs and I&O: Last Vital Signs Temp 98.6 F 04/15/16 15:55 Pulse 70 04/15/16 19:24 Resp 18 04/15/16 19:24 BP 140/84 04/15/16 19:24 Pulse Ox 94 04/15/16 19:24 Oxygen Pulse Oxygen Saturation 94 O2 Device Room Air Oxygen Flow Rate 1 Fraction of Inspired Oxygen ( FIO2) Intake & Output 04/12/16 04/13/16 04/14/16 04/15/16 23:59 23:59 23:59 23:59 Intake Total 236 2266 3144 1450 Output Total 1100 1150 1850 1850 Balance -864 1116 1294 -400 Patient's weight 97.25 kg 97.522 kg 96.887 kg 97.432 kg General: Alert, Mild distress, Weakness HEENT: PERRLA, EOMI, Anicteric Sclera, Mucous membr. moist/pink Neck: Normal Trachea alignment, Normal inspection Lymphatics: Normal Respiratory: negative: Accessory Muscle Use Cardiovascular: Regular rate and rhythm, Normal S1, Normal S2 GI: Normal bowel sounds, Soft, Non tender, Other (HAS G-TUBE NOW) Extremities/Musculoskeletal: Other (FLACCID PARALYSIS ON RIGHT (RUE/RLE)). negative: Edema Skin: Warm,Dry and Intact Neurological: Strength (PARALYSIS ON RIGHT SIDE), Other (MAKES GOOD EYE CONTACT , DOES NOT FOLLOW COMMANDS CONSISTENTLY). negative: Normal speech (GLOBAL APHASIA) Psych/Mental Status: Normal Affect, Cooperative - Assessment (1) CVA (cerebral vascular accident) Acute I63.9 - CEREBRAL INFARCTION, UNSPECIFIED Qualifiers: CVA mechanism: thrombosis Precerebral and cerebral artery: middle cerebral artery Laterality of affected vessel: left Qualified Code(s): I63.312 - Cerebral infarction due to thrombosis of left middle cerebral artery Comment/Plan: Large left stroke in temporoparietal region. Severe expressive aphasia and appears paralyzed in his right upper & lower extremities. He is not moving anything on the right voluntarily, but does move the left side. He has significant dysphagia so will be made NPO and an NG tube placed. May require PEG. Carotid Dopplers and 2D echo are pending. Continue speech therapy physical therapy and occupational therapy. He will need [facility] facility placement at discharge. (2) Flaccid paralysis affecting one side of the body Acute G81.00 - FLACCID HEMIPLEGIA AFFECTING UNSPECIFIED SIDE Comment/Plan: Appears to have extended his stroke, as he now has complete paralysis on the entire right side. Also has difficulty following commands, so probably has receptive and expressive aphasia. (3) Diabetes mellitus Acute E11.9 - TYPE 2 DIABETES MELLITUS WITHOUT COMPLICATIONS Qualifiers: Diabetes mellitus type: type 2 Diabetes mellitus complication status: with neurologic complications Diabetes mellitus complication detail: with other neurological complication Diabetic retinopathy severity: D Proliferative retinopathy type: P Diabetes mellitus macular edema: D Diabetes mellitus snf insulin use: without computer terminal operator use Laterality: L Chronic kidney disease stage: C Qualified Code(s): E11.49 - Type 2 diabetes mellitus with other diabetic neurological complication Comment/Plan: NPO due to acute stroke. Accu-Cheks and sliding scale insulin (4) Hypertension Acute I10 - ESSENTIAL (PRIMARY) HYPERTENSION Qualifiers: Hypertension type: essential hypertension Qualified Code(s): I10 - Essential (primary) hypertension Comment/Plan: Titrate medications as needed. - Plan BEGIN TUBE FEEDINGS, WILL NEED TO ADVANCE FEEDINGS TOLERATED. Case Care Discussed with: Patient, Nursing Staff, Occupational Therapy, Physical Therapy, Resource Management, Speech Therapy, Other (DIETARY) Education/Counseling Given To: Family Member Education/Counseling Given Regarding: Diagnosis, Treatment, Prognosis Total Time: 45 MIN Critical Care: No Couseling Time (>50% in counseling/coordination): Yes Code: 52367 (12+)
[2016-04-15] MEDS: GLUCERNA VANILLA PEG SCH (22:59)
[2016-04-15] MEDS: Levofloxacin 750 mg/150 ml D5W 750 MG/150 ML RTU IV SCH (23:34)
[2016-04-16] MEDS: GLUCERNA VANILLA PEG SCH ×2 (03:02→06:24)
[2016-04-16] MEDS: NS/KCl 20 mEq 1,000 ML IV SCH (05:33)
[2016-04-16] MEDS: REGULAR INSULIN 100 UNITS/ML - 3 ML VIAL SQ SCH ×2 (05:42→11:55)
[2016-04-16] MEDS: ASPIRIN 300 MG SUPP PR SCH (09:26)
--- NOTE | 2016-04-16 10:22 | PCM.DCS92 ---
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 Severe expressive aphasia and appears paralyzed in his right upper & lower extremities. He is not moving anything on the right voluntarily, but does move the left side. He has significant dysphagia so will be made NPO and an G tube placed. Carotid Dopplers were normal and 2D echo revealed diastolic CHF with some RVH. We have initiated feedings via the G-tube. Continue speech therapy, physical therapy, and occupational therapy. He will need [facility] facility placement at discharge. (2) Flaccid paralysis affecting one side of the body Acute G81.00 - FLACCID HEMIPLEGIA AFFECTING UNSPECIFIED SIDE Present on Admission: Yes Comment: Appears to have extended his stroke, as he now has complete paralysis on the entire right side. Also has difficulty following commands, so probably has receptive and expressive aphasia. (3) Diabetes mellitus Acute E11.9 - TYPE 2 DIABETES MELLITUS WITHOUT COMPLICATIONS Present on Admission: Yes type 2 with neurologic complications with other neurological complication D P D without counter waiter use L C E11.49 - Type 2 diabetes mellitus with other diabetic neurological complication Comment: NPO due to acute stroke. He will need Accu-Cheks and sliding scale insulin (4) Hypertension Acute I10 - ESSENTIAL (PRIMARY) HYPERTENSION Present on Admission: Yes essential hypertension I10 - Essential (primary) hypertension Comment: Titrate medications as needed. Discharge Disposition: Alf Facility Discharge Condition: Fair Cognitive Discharge Status: Unable to communicate needs Fuctional Discharge Status: Fall Risk, Inability to drive due to severe medical illness Physician Follow up/Referrals: None,No Provider [Family Provider] - One Week Home Medications / New Prescriptions: New Acetaminophen Tablet [TYLENOL Tablet] 650 mg PO Q6H PRN #100 tablet PRN Reason: Mild Pain Or Fever Above 100.4 Aspirin [Shelby Aspirin] 325 mg PO DAILY #30 tablet Atorvastatin Calcium [Lipitor] 80 mg PO DAILY@1800 #30 tablet Glucerna 240 ml PEG 0600,0900,1200,1500 #120 bottle Glucerna 240 ml PEG 1800,2100 #60 bottle Glucose [Glutose] 15 gm PO PRN PRN #20 tube PRN Reason: Hypoglycemia Protocol Orders Insulin, Regular [Humulin R] 2 units SQ ACHS #1 vial Continue Docusate Sodium [Colace] 100 mg PO TID Lisinopril [Zestril] 2.5 mg PO DAILY Metformin HCl 500 mg PO DAILY #30 tablet Discontinued Glimepiride 2 mg PO DAILY Pravastatin Sodium 10 mg PO QHS O2 Device: Room Air - DC Summary Notes Hospital Course Note:: Discharge summary on patient named JULIANA PRIETO admitted to [facility] on 04/10/16 by Dallin Henley MD. Date of discharge is []. - Physical Exam Vital Signs: Last Vital Signs Temp 97.8 F 04/16/16 07:39 Pulse 66 04/16/16 08:00 Resp 18 04/16/16 07:39 BP 119/80 04/16/16 07:39 Pulse Ox 94 04/16/16 08:00 Oxygen Pulse Oxygen Saturation 94 O2 Device Room Air Oxygen Flow Rate 1 Fraction of Inspired Oxygen ( FIO2) Constitutional: Alert, Restless, Well nourished, Other (unable to communicate). negative: Well appearing (Restless and agitated) Oriented to: Not Oriented, Unable to Test - HEENT Head: Normal Eye: Normal Oropharynx: Normal Tympanic Membrane: Dull Nose: No Symptoms Reported. negative: Bleeding, Congestion, Discharge - Respiratory/Cardiovascular Respiratory: Normal - CTA. negative: Accessory Muscle Use Cardiovascular: Normal (regular rhythm and rate) - GI Auscultation: Normal Palpation: Normal, Other (gastrostomy tube) Tenderness: Non tender, Other (Possible left inguinal hernia very tender in his left groin but very restless keeps moving with attempts to examine) Head's Sign: Negative Rectal Exam: Normal - Musculoskeletal Back: Normal Extremities: Normal - Integumentary Skin: Warm, Dry Lymphatics: Normal - Neurologic Memory Impaired: Unable to Test Motor Function: Abnormal (right sided flaccid paralysis,) Cranial Nerve: 2 (EOMI), 3 (EOMI), 4 (EOMI), 5 (seems to have good masseter strength), 6 (EOMI), 7 (nasolabial flattening on right), 8 (unable to test), 9 ( unable to test), 10 (unable to test), 11 (unable to test), 12 (unable to test), Deficit (right facial paresis) Cerebellar: Unable to Test Mood Description: Anxious, Flat, Other (Very restless) Thought: Other (global aphasia). negative: Coherent Perception: Other (unable to test). negative: Normal
[2016-04-16 10:57] VITALS: BP 119/78; TEMP 98.2
[2016-04-16] MEDS ORDERED: GLUCERNA VANILLA PEG SCH ×2 (12:00→18:00)
--- NOTE | 2016-04-16 12:05 | PCM.GIPROG ---
Progress Note (GI) Chief Complaint: Mr. Byrd with gastrostomy tube placed 04-15-16. He is in no distress. He continues to be aphasic with right-sided paralysis. His vital signs are stable. He is afebrile. H has tolerated small volume feedings well - Physical Exam Vital Signs: Temperature: 98.2 F (04/16/16 11:17) HR: 65 (04/16/16 11:17) RR: 18 (04/16/16 11:17) BP: 119/78 (04/16/16 11:17) Pulse Ox: 93 (04/16/16 10:57) General: Alert HEENT: negative: Icteric Sclera Respiratory: negative: Accessory Muscle Use Gastrointestinal: Soft, Bowel Sounds, Other (gastrostomy site unremarkable). 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 Severe expressive aphasia and appears paralyzed in his right upper & lower extremities. He is not moving anything on the right voluntarily, but does move the left side. He has significant dysphagia so will be made NPO and an G tube placed. Carotid Dopplers were normal and 2D echo revealed diastolic CHF with some RVH. We have initiated feedings via the G-tube. Continue speech therapy, physical therapy, and occupational therapy. He will need nursing home facility placement at discharge. (3) Diabetes mellitus Acute E11.9 - TYPE 2 DIABETES MELLITUS WITHOUT COMPLICATIONS Present on Admission: Yes type 2 with neurologic complications with other neurological complication D P D without mining manager use L C E11.49 - Type 2 diabetes mellitus with other diabetic neurological complication Comment: NPO due to acute stroke. He will need Accu-Cheks and sliding scale insulin (4) Hypertension Acute I10 - ESSENTIAL (PRIMARY) HYPERTENSION Present on Admission: Yes essential hypertension I10 - Essential (primary) hypertension Comment: Titrate medications as needed. Plan: 1. Routine gastrostomy care 2. Advanced diet per nutrition 3. Continue care of his other medical problems 4. I will sign off please call if further GI input is needed or problems developed
[2016-04-16 12:09] VITALS: PULSE 68
== END 2016-04-16 15:01 | DRG 65 ==
LOC: ED 11:09 → PCU 13:14
PROVIDERS: ADMIT Hospitalist; ATTEND Family Medicine
PROC: 0DH68UZ Insertion of Feeding Device into Stomach, Via Natural or Artificial Opening Endoscopic (ICD-10-PCS; principal; 2016-04-15)
DX: I63.312 Cerebral infarction due to thrombosis of left middle cerebral artery (principal); G81.91 Hemiplegia, unspecified affecting right dominant side; E11.49 Type 2 diabetes mellitus with other diabetic neurological complication; R47.01 Aphasia; R13.10 Dysphagia, unspecified; I10 Essential (primary) hypertension; Z79.899 Other long term (current) drug therapy; N40.0 Benign prostatic hyperplasia without lower urinary tract symptoms; Z86.73 Personal history of transient ischemic attack (TIA), and cerebral infarction without residual deficits; K29.70 Gastritis, unspecified, without bleeding; K44.9 Diaphragmatic hernia without obstruction or gangrene; K40.90 Unilateral inguinal hernia, without obstruction or gangrene, not specified as recurrent
CPT/HCPCS: 36415; 43246; 70450; 71010; 71020; 74176; 80048; 80053; 80061; 81001; 82962; 83735; 84443; 84484; 85025; 85027; 85610; 85730; 87040; 92523; 93005; 93306; 93880; 96372; 97163; 97167; 99152; 99153; 99285; J0690; J1200; J1650; J1956; J2175; J2250; J3490; J7040

== ENCOUNTER 2016-04-21 13:43 | Emergency (ER) | payer MEDICARE ==
[2016-04-21 13:43] VITALS: BMI 29.1
[2016-04-21 14:06] VITALS: TEMP 98.7
--- NOTE | 2016-04-21 18:41 | EDPRACDOC ---
- General Information Chief Complaint: Generalized Weakness Stated Complaint: BLEEDING FROM G TUBE Time Seen by Provider: 04/21/16 18:04 Information Source: Patient Home Medications: Home Medications Docusate Sodium [Colace] 100 mg PO TID 03/01/15 Lisinopril [Zestril] 2.5 mg PO DAILY 04/10/16 Aspirin [Shelby Aspirin] 325 mg PO DAILY #30 tablet 04/16/16 Metformin HCl 500 mg PO DAILY #30 tablet 04/16/16 Omeprazole [Prilosec] 40 mg PO DAILY #60 cap 04/21/16 Oxycodone Immediate Release [Oxycodone Immediate Release (OxyIR)] 5 mg PO Q6H PRN #30 tab 04/21/16 Pravastatin Sodium 10 mg PO QHS 04/21/16 Allergies/Adverse Reactions: Allergies Allergy/AdvReac Type Severity Reaction Status Date / Time No Known Allergies Allergy Verified 04/21/16 14:06 - History of Present 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 PT WAS SEEN BY ME 1 WEEK AGO FOR CVA AND ADMITTED; HAD TUBE PLACEMENT ONE WEEK AGO. PT HAS NO COMPLAINTS. FAMILY DENIES PAIN, FEVER, VOMITING/ DIARRHEA. Patient Has a Chronic/Temporary: Reports: Gastrostomy Associated Signs & Symptoms: Reports: GI Bleed ED Past Medical History - History Reviewed Yes Nurses notes reviewed and agree except as marked - Patient Medical History Neurological History: Reports: Cerebrovascular Accident Respiratory History: Reports: Asthma (CHILDHOOD ASTHMA.. RESOLVED) GI/ History: Reports: Kidney Stones (06/2014) Psychological History: Denies: Depression, Substance Use Disorder Systemic History: Reports: Diabetes Surgical History: Reports: Hernia Surgery (Lt groin 1971) - Family Medical History Reports: Diabetes (Mother,Brother). Denies: Hypertension, Cancer, Stroke, Cardiac Disorders - Social Medical History Smoking Status: Never smoker Social History: Denies: Substance Use Disorder EDM Review of Systems - Review of Systems ROS Negative Except as Marked: Yes All systems reviewed and were negative except as marked Constitutional: No Symptoms Reported Respiratory: No Symptoms Reported Cardiovascular: No Symptoms Reported Gastrointestinal: Other (BLOOD IN G TUBE) Neurological: No Symptoms Reported Musculoskeletal: No Symptoms Reported Integumentary: No Symptoms Reported - Physical Exam Constitutional: Alert (Awake), No apparent distress Oriented to: Unable to Test Last recorded Vital Signs: Last Vital Signs Temp 98.7 F 04/21/16 14:02 Pulse 80 04/21/16 17:22 Resp 20 04/21/16 17:22 BP 126/70 04/21/16 17:22 Pulse Ox 92 04/21/16 17:22 Oxygen Pulse Oxygen Saturation 92 O2 Device Room Air Oxygen Flow Rate Fraction of Inspired Oxygen ( FIO2) - HEENT Head: Normal Eye Exam: Normal - Respiratory/Cardiovascular Respiratory: Normal - CTA Cardiovascular: Normal - GI Auscultation: Normal Palpation: Normal Tenderness: Non tender, Other (NOTED G TUBE PLACEMENT WITH ARCENIO BLOOD IN THE TUBE; PT DENIES ANY PAIN; NO BLEEDING AROUND THE TUBE) Rectal Exam: Heme negative stool Stool: Other (WHITE) - Musculoskeletal Back: Normal Extremities: Normal - Integumentary Skin: Normal Lymphatics: Normal - Neurologic Cerebellar: Unable to Test Mood Description: Appropriate ED Tube Replacement MDM - Results Result Diagrams: 04/21/16 19:25 - Additional Information Additional Information: DR. TANG CALLED AND HE ADVISED TO FLUSH THE TUBE APPROPRIATELY AND MAKE SURE THAT THE TUBE MOVES FREELY W/OUT PAIN OR DIFFICULTY; THIS WAS DONE AND TUBE DOES MOVE FREELY W/OUT ARCENIO BLOOD ON DRAW. ALSO REQUESTED H&H, WHICH IS PENDING. ADVISED BY YINKA TO GIVE PREVACID THROUGH G TUBE AND D/C ON PPI. Decision Time to Discharge: 19:34 - Departure Disposition: Home Condition: Good Final Diagnosis: G TUBE EVALUATION Instructions: How to Use and Care for Your PEG Tube (ED) Education/Counseling Given To: Patient Education/Counseling Given Regarding: Diagnosis, Treatment, Follow Up Referrals: Giovanni Mesa MD [Primary Care Provider] - One Week Prescriptions: New Omeprazole [Prilosec] 40 mg PO DAILY #60 cap Oxycodone Immediate Release [Oxycodone Immediate Release (OxyIR)] 5 mg PO Q6H PRN #30 tab PRN Reason: Pain No Action Docusate Sodium [Colace] 100 mg PO TID Lisinopril [Zestril] 2.5 mg PO DAILY Aspirin [Shelby Aspirin] 325 mg PO DAILY #30 tablet Metformin HCl 500 mg PO DAILY #30 tablet Pravastatin Sodium 10 mg PO QHS Additional Instructions: CONTINUE TO USE G TUBE NORMAL. FEEL FREE TO RETURN TO ED FOR ANY WORSE/ CONCERNING SYMPTOMS. - Physician Consulted GI Time Called: 19:12 Provider Called: Nir Tang
--- NOTE | 2016-04-21 18:58 | DIRPT ---
CLINICAL DATA: Evaluate gastrostomy tube placement EXAM: ABDOMEN - 1 VIEW COMPARISON: 04/11/2016. FINDINGS: The gastrostomy tube is not well visualized. This may be due to patient's body habitus and/or portable technique. Enteric contrast material, presumably from previous CT, is identified within the colon. No abnormal bowel dilatation. IMPRESSION: 1. Nonobstructive bowel gas pattern. Electronically Signed By: Mami Jerez M.D. On: 04/21/2016 18:56
[2016-04-21 19:30] LABS: MPV 10.4 fL (7.4-10.4)
[2016-04-21 20:03] VITALS: BP 117/71; PULSE 81
== END 2016-04-21 20:02 ==
LOC: ED 13:43
DX: Z43.1 Encounter for attention to gastrostomy (principal)
CPT/HCPCS: 36415; 74000; 85027; 99284